=== PATIENT | male | born 2005 | race Asian ===

== ENCOUNTER 2024-05-05 12:58 | Emergency (ER) | payer BC, MEDICAID ==
[~2024-05-05] VITALS: Ht 167.6 cm; Wt 84.8 kg
--- NOTE | 2024-05-05 13:18 | ED.PDOC ---
HPI Comments HPI: Poor Historian. 18-year-old male presents to emergency department for evaluation of 1-2 weeks- history of nonspecific left-sided chest discomfort nonradiating. No particular alleviating or precipitating factors. Denies any other associated symptoms. Patient says he was told that he has a enlarged heart as a child but does not know much about that history. Patient denies any tobacco or drug use or alcohol use. Vitals: respiratory rate of 16, SpO2 of 99%RA, pulse rate of 73, and a blood pressure of 141/83 PMHx: cardiomegaly PSHx: denies REVIEW OF SYSTEMS: CONSTITUTIONAL: Denies acute: fever, diaphoresis, chills, generalized weakness. HEAD: Denies acute: headache, photophobia Eyes: Denies acute: Double vision, vision loss, eye pain, eye discharge. EARS: Denies acute: tinnitus, hearing loss, ear discharge, ear pain, THROAT: Denies acute: sore throat, swelling, difficulty swallowing , pain with swallowing, change in voice. NECK: Denies acute: neck pain, neck swelling, stiff neck. HEART: Denies acute : palpitations, LUNGS: Denies acute: SOB, wheezing, cough, hemoptysis ABDOMEN: Denies acute: abdominal pain, Nausea, Vomiting, diarrhea, melena , hematemesis, hematochezia SKIN: Denies acute: rash, redness, lesions, itchiness. EXTREMITIES: Denies acute: calf pain, numbness, tingling, weakness, denies pain in extremity. Denies acute: Low back pain. Neuro: Denies acute: focal neurological deficit, motor or sensory focal neurological deficit, tremors, seizure like activity, confusion, dizziness, change in mental status, loss of bowel or bladder function, cauda equina like symptoms. : Denies acute: dysuria, hematuria, flank pain, increase in urinary frequency. PSYCH: Denies acute: hallucination, suicidal ideation, homicidal ideation. PHYSICAL EXAM: General: no acute distress, awake and alert. Head: normocephalic, atraumatic. Neck: supple, trachea is midline, no swelling. Throat: Normal phonation. Eyes:, no erythema, no purulent discharge, no proptosis, no icterus. Heart: regular rate, regular rhythm, no significant murmur appreciated. Lungs: no apparent respiratory distress, Able to speak in full sentences. No wheezing, no rhonchi, no crackles. No stridors Clear to auscultation bilaterally. Abdomen: non tender to palpation, non distended, soft, no guarding, no rebound, + bowel sounds. Neuro: Awake, Alert, oriented to name, self, situation, follows commands GCS=15. Speech is normal. Skin: no petechia, no purpura, no cyanosis, non-pale, not jaundice. Lower extremities: --no - Pitting edema no deformity, no focal swelling, no calf TTP. Makes eye contact. moves all four extremities. Face: no apparent facial droop. Ambulating in the ED independently. Chief Complaint: Chest Pain Time Seen by MD: 13:00 Reviewed Notes: Nurses Notes, Medications, Allergies Allergies: Coded Allergies: NO KNOWN ALLERGIES (Unverified , 05/05/24) Information Source: Patient EKG EKG #1: Pulse Rate (adult): 82 Mccrory: Normal Cardiac Rhythm: NSR Block: None Hypertrophy: None ST: Normal EKG #2: Pulse Rate (adult): 73 Mccrory: Normal Cardiac Rhythm: NSR Block: None Hypertrophy: None ST: Normal Was a procedure done? Was a procedure done?: No CP Differential Dx Differential Diagnosis: N/A Differential Diagnosis: Other (Ddx include but not limitied to gastritis, musculoskeletal pain, radiculopathy, atypical chest pain, dissection, aneurysm, ACS, unstable angina, hiatal hernia, GERD, anxiety, costochondritis, PE, pneumothroax, neoplasm, cardiac ischemia, drug abuse, anemia.) X-Ray, Labs, Meds, VS Vital Signs Date Time Temp Pulse Resp B/P (MAP) Pulse Ox O2 Delivery O2 Flow Rate FiO2 05/05/24 19:01 66 16 128/64 (85) 99 05/05/24 14:23 73 05/05/24 14:04 73 05/05/24 13:02 82 05/05/24 13:00 97.9 73 16 141/83 (102) 99 Lab Test 05/05/24 15:54 05/05/24 13:57 05/05/24 13:05 Range/Units Troponin I High Sensitivity < 3 L < 3 L < 3 L </=54 ng/L White Blood Count 6.5 4.4-10.8 10^3/uL Red Blood Count 5.22 4.5-5.90 10^6/uL Hemoglobin 16.4 13.5-17.5 g/dL Hematocrit 48.3 41.0-53.0 % Mean Corpuscular Volume 92.7 80.0-100.0 fL Mean Corpuscular Hemoglobin 31.5 28.0-32.0 pg Mean Corpuscular Hemoglobin Concent 34.0 32.0-36.0 g/dL Red Cell Distribution Width 12.7 11.8-14.3 % Platelet Count 300 140-450 10^3/uL Mean Platelet Volume 8.0 6.9-10.8 fL Neutrophils (%) (Auto) 44.3 37.0-80.0 % Lymphocytes (%) (Auto) 40.3 10.0-50.0 % Monocytes (%) (Auto) 11.9 0.0-12.0 % Eosinophils (%) (Auto) 2.9 0.0-7.0 % Basophils (%) (Auto) 0.6 0.0-2.0 % Neutrophils # (Auto) 2.9 1.6-8.6 10 ^3/uL Lymphocytes # (Auto) 2.6 0.4-5.4 10 ^3/uL Monocytes # (Auto) 0.8 0-1.3 10 ^3/uL Eosinophils # (Auto) 0.2 0-0.8 10 ^3/uL Basophils # (Auto) 0 0-0.2 10 ^3/uL Nucleated Red Blood Cells 0.0 % D-Dimer, Quantitative < 0.19 0.0-0.49 mg/L FEU Sodium Level 141 136-145 mmol/L Potassium Level 4.3 3.5-5.1 mmol/L Chloride Level 107 98-107 mmol/L Carbon Dioxide Level 27 20-31 mmol/L Anion Gap 7 5-15 Blood Urea Nitrogen 10 9-23 mg/dL Creatinine 1.03 0.700-1.30 mg/dL Glomerular Filtration Rate Calc 107 >90 mL/min BUN/Creatinine Ratio 9.7 L 10.0-20.0 Serum Glucose 100 74-106 mg/dL Calcium Level 10.4 8.7-10.4 mg/dL B-Type Natriuretic Peptide 9.94 0-100 pg/mL [facility] [address] [facility] [address] Ph: [phone] DIAGNOSTIC IMAGING Diagnostic Imaging Report : [id number] Signed PATIENT: CLAUDIA MCKEON ACCT: [id number] UNIT: [id number] : 2005 LOC: ER ROOM / BED: / AGE / SEX: 18 / M ADM STATUS: REG ER SERVICE 1300 ORDERING PHYSICIAN: EUGENIA IZQUIERDO DO PROCEDURE(s): CXR2 - CHEST TWO VIEWS ROUTINE REASON: CHEST PAIN ORDER NUMBER(s): [id number], ACCESSION NUMBER(s): [id number] XY CHEST TWO VIEWS ROUTINE CLINICAL HISTORY: CHEST PAIN COMPARISON: None TECHNIQUE: Frontal and lateral view of the chest was obtained FINDINGS: Lines and Tubes: None Lungs: No focal consolidation. Pleura: No effusion. No pneumothorax. Cardiomediastinal contours: Unremarkable Bones: No acute osseous abnormality. IMPRESSION: No acute cardiopulmonary disease. ATED BY: EVELIN LACEY DO DICTATED DATE/TIME: 05/05/241333 SIGNED BY: EVELIN LACEY DO SIGNED DATE/TIME: 05/05/241333 CC: Time of 1ST Reevaluation: 13:30 Reevaluation 1ST: Unchanged Patient Education/Counseling: Diagnosis, Treatment Family Education/Counseling: No Family Present Comments Patient presented with the above HPI.---cardiac--workup was initiated. patient was found with the above mentioned diagnosis. Patient ED course and VS have been stabilized. Patient has been reassessed in the ED and remained in a stable condition. Pertinent incidental findings were discussed with the patient and/or family. Patient/family voices understanding and is agreeable with plan. Patient has been observed in the ED adequate length of time to insure improvement/stability. Chest x-ray and EKGs were reviewed. Heart score is 0 patient was discharged home in a stable condition. All the reports of any imaging studies that were ordered by myself were reviewed by myself. Departure 1 Departure Time of Disposition: 15:26 Impression: Primary Impression: Chest pain Disposition: 01 HOME / SELF CARE / HOMELESS Condition: Stable Additional Instructions: Additional discharge instructions: You MUST follow-up with your primary care/family doctor in 1 to 2 days. If you are unable to see your primary care/family doctor, please return to our emergency room for re-assessment and re-evaluation in 1 to 2 days. Return to the emergency room here in our facility or to the nearest ER [facility] if your symptoms change or worsen. CONSULTATIONS: you MUST Follow-up for consultation as soon as possible with: cardiology in 1-2 days You MUST call the consultants office yourself to make an appointment. You may need to arrange that through your insurance and/or your primary/family doctor. If you are unable to see the consultant dietitian in 1 to 2 days, you must return to our emergency room (or any other ER of your choice) for re-assessment and re- evaluation. Adequate fluid hydration. [place] [address] Ph: [phone] DIAGNOSTIC IMAGING Diagnostic Imaging Report : [id number] Signed PATIENT: CLAUDIA MCKEON ACCT: [id number] UNIT: [id number] : 2005 LOC: ER ROOM / BED: / AGE / SEX: 18 / M ADM STATUS: REG ER SERVICE 1300 ORDERING PHYSICIAN: EUGENIA IZQUIERDO DO PROCEDURE(s): CXR2 - CHEST TWO VIEWS ROUTINE REASON: CHEST PAIN ORDER NUMBER(s): [id number], ACCESSION NUMBER(s): [id number] XY CHEST TWO VIEWS ROUTINE CLINICAL HISTORY: CHEST PAIN COMPARISON: None TECHNIQUE: Frontal and lateral view of the chest was obtained FINDINGS: Lines and Tubes: None Lungs: No focal consolidation. Pleura: No effusion. No pneumothorax. Cardiomediastinal contours: Unremarkable Bones: No acute osseous abnormality. IMPRESSION: No acute cardiopulmonary disease. ATED BY: EVELIN LACEY DO DICTATED DATE/TIME: 05/05/241333 SIGNED BY: EVELIN LACEY DO SIGNED DATE/TIME: 05/05/241333 CC: Discharged With: Self Critical Care Note Critical Care Time?: No Heart Score Heart Score: Heart Score Response (Comments) Value History Slightly Suspicious 0 EKG Normal 0 Age <45 0 Risk Factors No known risk factors 0 Troponin Normal limit 0 Total 0 I personally scribed for EUGENIA IZQUIERDO DO ([email or web address]) on 05/05/24 at 13:18. Electronically submitted by Sohail Herrera ([email or web address]). I personally scribed for EUGENIA IZQUIERDO DO ([email or web address]) on 05/05/24 at 14:01. Electronically submitted by Sohail Herrera ([email or web address]). I personally scribed for EUGENIA IZQUIERDO DO ([email or web address]) on 05/05/24 at 14:23. Electronically submitted by Sohail Herrera ([email or web address]). I personally scribed for EUGENIA IZQUIERDO DO ([email or web address]) on 05/05/24 at 15:28. Sun ctronically submitted by Sohail Herrera ([email or web address]). EUGENIA IZQUIERDO DO May 05, 2024 13:18
[2024-05-05 13:33] LABS: Basophils # (auto) 0 10 ^3/uL (0-0.2); Basophils % (auto) 0.6 % (0.0-2.0); Eosinophils # (auto) 0.2 10 ^3/uL (0-0.8); Eosinophils % (auto) 2.9 % (0.0-7.0); Hematocrit 48.3 % (41.0-53.0); Hemoglobin 16.4 g/dL (13.5-17.5); Lymphocytes # (auto) 2.6 10 ^3/uL (0.4-5.4); Lymphocytes % (auto) 40.3 % (10.0-50.0); Mean Corpuscular Hemoglobin 31.5 pg (28.0-32.0); Mean Corpuscular Volume 92.7 fL (80.0-100.0); Monocytes # (auto) 0.8 10 ^3/uL (0-1.3); Monocytes % (auto) 11.9 % (0.0-12.0); Neutrophils # (auto) 2.9 10 ^3/uL (1.6-8.6); Neutrophils % (auto) 44.3 % (37.0-80.0); Platelet Count (auto) 300 10^3/uL (140-450); Red Blood Cells 5.22 10^6/uL (4.5-5.90); Red Cell Distribution Width 12.7 % (11.8-14.3); White Blood Cell 6.5 10^3/uL (4.4-10.8)
--- NOTE | 2024-05-05 13:36 | DVH ---
XY CHEST TWO VIEWS ROUTINE CLINICAL HISTORY: CHEST PAIN COMPARISON: None TECHNIQUE: Frontal and lateral view of the chest was obtained FINDINGS: Lines and Tubes: None Lungs: No focal consolidation. Pleura: No effusion. No pneumothorax. Cardiomediastinal contours: Unremarkable Bones: No acute osseous abnormality. IMPRESSION: No acute cardiopulmonary disease.
[2024-05-05 13:49] LABS: Chloride 107 mmol/L (98-107); Potassium 4.3 mmol/L (3.5-5.1); Sodium 141 mmol/L (136-145)
[2024-05-05 13:50] LABS: Anion Gap 7 (5-15); Carbon Dioxide 27 mmol/L (20-31)
[2024-05-05 13:51] LABS: Calcium 10.4 mg/dL (8.7-10.4)
[2024-05-05 13:56] LABS: BUN/Creatinine Ratio 9.7 (10.0-20.0); Blood Urea Nitrogen 10 mg/dL (9-23); Glucose 100 mg/dL (74-106)
--- NOTE | 2024-05-05 18:49 | ECG ---
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
[2024-05-05 19:01] VITALS: BP 128/64; PULSE 66; RESP 16; O2SAT 99
--- NOTE | 2024-05-07 11:16 | ECG ---
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
== END 2024-05-05 19:02 | disposition home or self-care (01) ==
LOC: ER 12:58
DX: R07.89 Other chest pain (principal); R06.02 Shortness of breath; Z79.899 Other long term (current) drug therapy
CPT/HCPCS: 36415; 71046; 80048; 83880; 84484; 85025; 85379; 93005

== ENCOUNTER 2025-04-07 18:32 | Emergency (ER) | payer BC, MEDICAID ==
[~2025-04-07] VITALS: Ht 167.6 cm; Wt 80.0 kg
--- NOTE | 2025-04-07 19:34 | DVH ---
CLINICAL INDICATION: lumbar back pain TECHNIQUE: 3 radiographic views of the lumbar spine were obtained. Comparison: None FINDINGS/IMPRESSION: Bony alignment is normal. There are no compressed vertebra. No spondylolisthesis.
[2025-04-07 20:05] VITALS: BP 138/81; PULSE 79; RESP 16; TEMP 98.5; O2SAT 99
[2025-04-07] MEDS ORDERED: IBUP-1456 PO (20:52)
[2025-04-07] MEDS ORDERED: CYCL-837 PO (20:52)
--- NOTE | 2025-04-07 20:52 | ED.PDOC ---
Back pain HPI HPI Comments 19-year-old male presents to ER with complaints of back pain x1 month. Patient reports that he started experiencing lower lumbar back pain one month ago that started while he was "working out". He rates his current lower lumbar back pain an 8/10 and notes he has been taking Tylenol for his pain with slight relief. Patient presents to ER ambulatory on arrival, with steady gait, in no distress. Denies fever, body aches, chills, night sweats, shortness of breath, chest pain, abdominal/pelvic pain, extremity weakness, changes in urination/BM or any further symptoms/complaints Chief Complaint: Back Pain Time Seen by MD: 18:43 Primary Care Provider: UNKNOWN Reviewed Notes: Nurses Notes, Medications, Allergies Allergies: Coded Allergies: NO KNOWN ALLERGIES (Unverified , 05/05/24) Home Meds Active Scripts Cyclobenzaprine Hcl (Cyclobenzaprine Hcl) 5 Mg Tab, 1 TAB PO QHSP, #14 TAB 0 Refills Prov:MEEK KAISER 04/07/25 Ibuprofen (Ibuprofen) 800 Mg Tab, 1 TAB PO TID PRN, #30 TAB 0 Refills Prov:MEEK KAISER 04/07/25 Information Source: Patient Mode of Arrival: Ambulatory Past Medical History PAST MEDICAL HISTORY: Denies Surgical History: Denies all surgeries Family History Family History: Unknown Social History Smoker: Non-Smoker Alcohol: Denies ETOH Use Drugs: Denies Drug Use Lives In: Home Constitutional: denies: chills, diaphoresis, fatigue, fever, malaise, sweats, weakness, others EENTM: denies: blurred vision, double vision, ear bleeding, ear discharge, ear drainage, ear pain, ear ringing, eye pain, eye redness, hearing loss, mouth pain, mouth swelling, nasal discharge, nose bleeding, nose congestion, nose pain, photophobia, tearing, throat pain, throat swelling, voice changes, others Respiratory: denies: cough, hemoptysis, orthopnea, SOB at rest, shortness of breath, SOB with excertion, stridor, wheezing, others Cardiovascular: denies: chest pain, dizzy spells, diaphoresis, Dyspnea on exertion, edema, irregular heart beat, left arm pain, lightheadedness, palpitations, PND, syncope, others Gastrointestinal: denies: abdomen distended, abdominal pain, blood streaked bowels, constipated, diarrhea, dysphagia, difficulty swallowing, hematemesis, melena, nausea, poor appetite, poor fluid intake, rectal bleeding, rectal pain, vomiting, others Genitourinary: denies: burning, dysuria, flank pain, frequency, hematuria, incontinence, penile discharge, penile sore, pain, testicle pain, testicle swelling, urgency, others Neurological: denies: dizziness, fainting, headache, left sided numbness, left sided weakness, numbness, paresthesia, pre-existing deficit, right sided numbness, right sided weakness, seizure, speech problems, tingling, tremors, weakness, others Musculoskeletal: reports: others (As stated in HPI) Integumetry: denies: bruises, change in color, change in hair/nails, dryness, laceration, lesions, lumps, rash, wounds, others Allergic/Immunocompromised: denies: Difficulty Healing, Frequent Infections, Hives, Itching, others Hematologic/Lymphatic: denies: anemia, blood clots, easy bleeding, easy bruising, swollen glands, others Endocrine: denies: excessive hunger, excessive sweating, excessive thirst, excessive urination, flushing, intolerance to cold, intolerance to heat, unexplained weight gain, unexplained weight loss, others Psychiatric: denies: anxiety, bipolar disorder, depression, hopeless, panic disorder, schizophrenia, sleepless, suicidal, others Physical Exam General Appearance: No Apparent Distress HEENT: PERRL/EOMI Neck: Full Range of Motion, Non-Tender, Normal Respiratory: Chest Non-Tender, Lungs Clear, No Accessory Muscle Use, No R espiratory Distress, Normal Breath Sounds Cardiovascular: No Murmur, No Gallop, Regular Rate/Rhythm Breast Exam: Deferred Gastrointestinal: Non Tender, No Pulsatile Mass, Soft Genitalia: Deferred Pelvic: Deferred Rectal: Deferred Extremities: Normal capillary refill, Normal range of motion Musculoskeletal : Extremity Location: Back (TTP to bilateral lower lumbar paraspinals and centralized to lower lumbar spine noted. No skin changes noted. Steady gait ap preciated) Neurologic: Alert, No Motor Deficits, Normal Affect, Normal Mood, No Sensory Deficits Cerebellar Function: Normal Reflexes: Normal Skin: Dry, Normal Color, Warm Lymphatic: No Adenopathy Was a procedure done? Was a procedure done?: No Sedation Sedation?: No Back Pain Differential Dx Differential Diagnosis: AAA, Fracture, Urinary Tract Infection, Other (Neurovascular injury) X-Ray, Labs, Meds, VS Vital Signs Date Time Temp Pulse Resp B/P (MAP) Pulse Ox O2 Delivery O2 Flow Rate FiO2 04/07/25 20:49 Room Air* 0 21 04/07/25 20:05 79 16 99 Room Air 04/07/25 20:05 98.5 79 16 138/81 (100) 79 98.5 04/07/25 18:45 138/81 04/07/25 18:32 97.3 76 18 161/115 99 97.3 Lab Test 04/07/25 20:04 Range/Units Urine Color Pending Urine Clarity Pending Urine pH Pending Urine Specific [place] Pending Urine Protein Pending Urine Ketones Pending Urine Blood Pending Urine Nitrite Pending Urine Bilirubin Pending Urine Urobilinogen Pending Urine Leukocyte Esterase Pending Urine RBC Pending Urine Microscopic WBC Pending Urine Squamous Epithelial Cells Pending Urine Bacteria Pending Urine Glucose Pending PATIENT: CLAUDIA MCKEON LACCT: [id number]: [id number] : 2005 LOC: ER ROOM / BED: / AGE / SEX: 19 / M ADM STATUS: REG ER SERVICE 43 ORDERING PHYSICIAN: MEEK KAISER PROCEDURE(s): LUMB2 - LUMBAR SPINE 3 VIEW REASON: lumbar back pain ORDER NUMBER(s): [id number], ACCESSION NUMBER(s): [id number] CLINICAL INDICATION: lumbar back pain TECHNIQUE: 3 radiographic views of the lumbar spine were obtained. Comparison: None FINDINGS/IMPRESSION: Bony alignment is normal. There are no compressed vertebra. No spondylolisthesis. ATED BY: MATT FLORES Jr., DO DICTATED DATE/TIME: 04/07/251931 SIGNED BY: MATT FLORES Jr., SIGNED DATE/TIME: 04/07/251931 CC: Lumbar spine x-ray reviewed Urinalysis reviewed- unremarkable Patient neurovascularly intact and in no distress prior to discharge Advised to follow up with PCP in 1-2 days Patient verbalized understanding and agreeable with current plan of care Advised to return to ER immediately if symptoms worsen Images Reviewed?: Images reviewed and evaluated by me Time of 1ST Reevaluation: 20:24 Reevaluation 1ST: N/A Patient Education/Counseling: Diagnosis, Treatment, Prognosis, Need For Follow Up Family Education/Counseling: No Family Present SEPSIS Sepsis Screen Date sepsis recognized/suspect: Apr 07, 2025 Time Sepsis recognized/suspect: 1833 Recent Procedure: No On Antibiotic Therapy: No Respiratory Rate >20: No Heart Rate >90: No Temp<36 C (96.8 F) or >38.3 C: No SBP <90 or MAP <65 mmHG: No New Acute Mental Status Change: No Is the patient on CPAP, BIPAP,: No Physician Orders Lumbar Spine 3 View (04/07/25 18:44) Urinalysis (04/07/25 18:44) Vital Signs Date Time Temp Pulse Resp B/P (MAP) Pulse Ox O2 Delivery O2 Flow Rate FiO2 04/07/25 20:49 Room Air* 0 21 04/07/25 20:05 79 16 99 Room Air 04/07/25 20:05 98.5 79 16 138/81 (100) 79 98.5 04/07/25 18:45 138/81 04/07/25 18:32 97.3 76 18 161/115 99 97.3 Departure 1 Departure Time of Disposition: 20:50 Impression: Primary Impression: Lumbar strain Qualified Codes: S39.012A - Strain of muscle, fascia and tendon of lower back, initial encounter Disposition: HOME / SELF CARE / HOMELESS Condition: Stable e-Prescriptions Cyclobenzaprine Hcl (Cyclobenzaprine Hcl) 5 Mg Tab 1 TAB PO QHSP, #14 TAB 0 Refills Prov: MEEK KAISER 04/07/25 Ibuprofen (Ibuprofen) 800 Mg Tab 1 TAB PO TID PRN, #30 TAB 0 Refills Prov: MEEK KAISER 04/07/25 Discharged With: Self Critical Care Note Critical Care Time?: No Stability Stability form required: No Heart Score Heart Score: Heart Score Response (Comments) Value History N/A 0 EKG N/A 0 Age N/A 0 Risk Factors N/A 0 Troponin N/A 0 Total 0 MEEK KAISER Apr 07, 2025 20:52
[2025-04-07 20:57] LABS: Urine Amorphous Crystal FEW /hpf (None Seen); Urine Protein, UAD Negative (Negative)
== END 2025-04-07 21:07 | disposition home or self-care (01) ==
LOC: ER 18:32
DX: S39.012A Strain of muscle, fascia and tendon of lower back, initial encounter (principal); Z79.899 Other long term (current) drug therapy; X58.XXXA Exposure to other specified factors, initial encounter; Y93.89 Activity, other specified; Y92.89 Other specified places as the place of occurrence of the external cause; Y99.8 Other external cause status
CPT/HCPCS: 72100; 81001